=== PATIENT | male | born 1995 | race Hispanic/Latino ===

== ENCOUNTER 2020-02-09 07:41 | Emergency (ER) | payer SELFPAY ==
--- NOTE | 2020-02-09 09:39 | RAD ---
EXAM: 3 views of the right shoulder HISTORY: Shoulder pain COMPARISON: None FINDINGS: There is anterior/inferior dislocation of the glenohumeral joint. No acute fracture is seen . There may be a Hill-Sachs deformity in the proximal humerus. No degenerative changes are present. No soft tissue swelling is seen. The visualized thorax is unremarkable. IMPRESSION: Right anterior/inferior shoulder dislocation
[2020-02-09] MEDS ORDERED: Ketamine 50 MG/ML (10ML VIAL) ONE (09:51)
[2020-02-09] MEDS ORDERED: Ondansetron PF 4 MG/2 ML Vial ONE (09:51)
[2020-02-09] MEDS ORDERED: Fentanyl 100 MCG/2 ML VIAL ONE (10:38)
[2020-02-09] MEDS ORDERED: PROPOFOL 20 ML ONE (10:44)
--- NOTE | 2020-02-10 07:14 | RAD ---
XR Shoulder Rt 3 View STANDARD HISTORY: Right shoulder dislocation FINDINGS: There has been interval reduction of the anterior right shoulder dislocation noted on earlier exam of 9:20 AM from same date. Anatomic alignment has been restored. There is suggestion of a Hill-Sachs deformity.
== END 2020-02-09 12:20 | disposition home or self-care (01) ==
LOC: ERS 07:41
DX: S43.014A Anterior dislocation of right humerus, initial encounter (principal); F17.210 Nicotine dependence, cigarettes, uncomplicated
CPT/HCPCS: 23650; 96374; 96375; 99152; 99153; J2405; J2704; J3010

== ENCOUNTER 2020-04-14 20:25 | Observation (INO) | payer SELFPAY ==
[2020-04-14] MEDS ORDERED: levETIRAcetam in NS 100 ML ONE (20:56)
[2020-04-14 21:04] LABS: #Eosinphils 0.1 thou/uL (0.0-0.7); #Lymphocytes 2.1 thou/uL (1.20-3.40); #Monocytes 0.4 thou/uL (0.11-0.59); %Basophils 0.2 % (0.0-1.0); %Eosinophils 1.3 % (0.0-10.0); %Lymphocytes 24.5 % (21.0-51.0); %Monocytes 4.8 % (0.0-10.0); %Neutrophils 69.2 % (42.0-75.0); Mean Corpuscular HGB CONC 33.9 g/dL (32.0-36.0); Mean Corpuscular Hemoglobin 32.3 pg (27.0-31.0); Mean Corpuscular Volume 95.2 fL (78.0-98.0); Mean Platelet Volume 8.2 fL (7.4-10.4); Platelet Count 190 thou/uL (130-400); RBC Distribution Width 11.5 % (11.5-14.5); Red Blood Cell (RBC) Count 4.64 mill/uL (4.70-6.10); White Blood Cell (WBC) Count 8.6 thou/uL (4.8-10.8)
[2020-04-14 21:24] LABS: ALT (SGPT) 15 U/L (8-55); AST (SGOT) 19 U/L (5-34); Albumin 4.3 g/dL (3.5-5.0); Alkaline Phosphatase 68 U/L (40-110); Anion Gap 15 mmol/L (10-20); BUN (Urea Nitrogen) 13 mg/dL (8.9-20.6); Bilirubin, Total 0.6 mg/dL (0.2-1.2); Calc. Creatinine Clearance 0 mL/min (70-130); Calcium 8.8 mg/dL (7.8-10.44); Carbon Dioxide 24 mmol/L (22-29); Chloride 102 mmol/L (98-107); Globulin 2.9 g/dL (2.4-3.5); Glucose 129 mg/dL (70-105); Potassium 3.9 mmol/L (3.5-5.1); Protein, Total 7.2 g/dL (6.0-8.3); Sodium 137 mmol/L (136-145)
[2020-04-15] MEDS ORDERED: Acetaminophen 325 MG TAB PO PRN (01:27)
[2020-04-15] MEDS ORDERED: Acetaminophen 650 MG Suppository PR PRN (01:27)
[2020-04-15] MEDS ORDERED: Lorazepam 2 MG/ML VIAL SLOW IVP PRN (01:29)
[2020-04-15 03:33] VITALS: BMI 28.0
[2020-04-15 05:35] LABS: #Eosinphils 0.1 thou/uL (0.0-0.7); #Lymphocytes 1.3 thou/uL (1.20-3.40); #Monocytes 0.7 thou/uL (0.11-0.59); #Neutrophils 12.6 thou/uL (1.40-6.50); %Basophils 0.3 % (0.0-1.0); %Eosinophils 0.4 % (0.0-10.0); %Monocytes 4.9 % (0.0-10.0); %Neutrophils 85.5 % (42.0-75.0); Hemoglobin 14.1 g/dL (14.0-18.0); Mean Corpuscular HGB CONC 32.3 g/dL (32.0-36.0); Mean Corpuscular Hemoglobin 30.3 pg (27.0-31.0); Mean Corpuscular Volume 93.9 fL (78.0-98.0); Mean Platelet Volume 8.4 fL (7.4-10.4); Platelet Count 195 thou/uL (130-400); RBC Distribution Width 11.7 % (11.5-14.5); Red Blood Cell (RBC) Count 4.66 mill/uL (4.70-6.10); White Blood Cell (WBC) Count 14.7 thou/uL (4.8-10.8)
[2020-04-15 05:57] LABS: Anion Gap 13 mmol/L (10-20); BUN (Urea Nitrogen) 12 mg/dL (8.9-20.6); Calc. Creatinine Clearance 170 mL/min (70-130); Calcium 8.5 mg/dL (7.8-10.44); Carbon Dioxide 23 mmol/L (22-29); Chloride 104 mmol/L (98-107); Glucose 112 mg/dL (70-105); Potassium 3.6 mmol/L (3.5-5.1); Sodium 136 mmol/L (136-145)
[2020-04-15] MEDS ORDERED: levETIRAcetam 500 MG TAB PO SCH (09:00)
[2020-04-15] MEDS ORDERED: FLU VACC QS2020-21(6MOS UP)/PF 60 MCG/0.5 ML SYRINGE IM ONE (09:00)
[2020-04-15] MEDS ORDERED: Famotidine 20 MG TAB PO SCH (09:00)
[2020-04-15 09:32] LABS: SARS-CoV-2 PCR by NAA Not Detected (NotDetected)
[2020-04-15 12:07] LABS: Amphetamine Not Detected (NotDetected); Barbiturates Screen Not Detected (NotDetected); Benzodiazepine Screen Not Detected (NotDetected); Cocaine Metabolite Screen Not Detected (NotDetected); Medtox Control Line Valid? VALID (VALID); Medtox Reader # READER 4; Methadone Not Detected (NotDetected); Methamphetamine Not Detected (NotDetected); Opiate Screen Not Detected (NotDetected); Oxycodone Screen Not Detected (NotDetected); Phencyclidine (PCP) Not Detected (NotDetected); THC/Cannabinoid Screen Not Detected (NotDetected); Tricyclic Screen Not Detected (NotDetected)
[2020-04-15] MEDS ORDERED: Magnevist 469MG/ML 20 ML VIAL ONE (14:22)
[2020-04-15 16:00] VITALS: BP 105/53; TEMP 98.6
== END 2020-04-15 17:55 | disposition home or self-care (01) ==
LOC: ERS 20:25 → 2SE 04-15 00:24
PROVIDERS: ADMIT Internal Medicine; ATTEND Internal Medicine
DX: G40.409 Other generalized epilepsy and epileptic syndromes, not intractable, without status epilepticus (principal); F17.210 Nicotine dependence, cigarettes, uncomplicated; Z20.822 Contact with and (suspected) exposure to COVID-19
CPT/HCPCS: 36415; 70450; 70553; 80048; 80053; 80306; 84146; 85025; 87635; 90471; 90662; 93005; 95712; 95816; 95819; 95957; 96365; A9579; G0008; G0378; J1953; U0003; U0005

== ENCOUNTER 2020-10-29 04:10 | Emergency (ER) | payer SELFPAY ==
[2020-10-29] MEDS ORDERED: Morphine 10 MG/ML VIAL ONE (04:46)
[2020-10-29] MEDS ORDERED: Lidocaine 1% (PF) 30 ML VIAL ONE (04:48)
== END 2020-10-29 05:50 | disposition home or self-care (01) ==
LOC: ERS 04:10
DX: S43.014A Anterior dislocation of right humerus, initial encounter (principal); F17.210 Nicotine dependence, cigarettes, uncomplicated; X58.XXXA Exposure to other specified factors, initial encounter
CPT/HCPCS: 23650; 96372; J2001; J2270

== ENCOUNTER 2020-12-03 06:58 | Day surgery (SDC) | payer SELFPAY ==
[2020-12-03] MEDS ORDERED: Ketamine 50 MG/ML (10ML VIAL) ONE (08:50)
[2020-12-03] MEDS ORDERED: PROPOFOL 20 ML ONE (08:50)
[2020-12-03 10:04] LABS: #Lymphocytes 1.2 thou/uL (1.20-3.40); #Monocytes 0.6 thou/uL (0.11-0.59); #Neutrophils 17.1 thou/uL (1.40-6.50); %Basophils 0.1 % (0.0-1.0); %Eosinophils 0.1 % (0.0-10.0); %Lymphocytes 6.6 % (21.0-51.0); %Neutrophils 90.3 % (42.0-75.0); Mean Corpuscular HGB CONC 33.4 g/dL (32.0-36.0); Mean Corpuscular Hemoglobin 31.2 pg (27.0-31.0); Mean Corpuscular Volume 93.5 fL (78.0-98.0); Mean Platelet Volume 7.8 fL (7.4-10.4); Platelet Count 221 thou/uL (130-400); Red Blood Cell (RBC) Count 5.14 mill/uL (4.70-6.10); White Blood Cell (WBC) Count 18.9 thou/uL (4.8-10.8)
[2020-12-03] MEDS ORDERED: Fentanyl 100 MCG/2 ML VIAL ONE ×2 (10:14→10:44)
[2020-12-03 10:23] LABS: ALT (SGPT) 16 U/L (8-55); AST (SGOT) 17 U/L (5-34); Albumin 4.2 g/dL (3.5-5.0); Alkaline Phosphatase 86 U/L (40-110); Anion Gap 15 mmol/L (10-20); BUN (Urea Nitrogen) 12 mg/dL (8.9-20.6); Bilirubin, Total 0.4 mg/dL (0.2-1.2); Calc. Creatinine Clearance 0 mL/min (70-130); Calcium 9.4 mg/dL (7.8-10.44); Carbon Dioxide 23 mmol/L (22-29); Chloride 104 mmol/L (98-107); Globulin 2.9 g/dL (2.4-3.5); Glucose 119 mg/dL (70-105); Protein, Total 7.1 g/dL (6.0-8.3); Sodium 138 mmol/L (136-145)
[2020-12-03] MEDS ORDERED: Midazolam HCl 2 mg/2 ml Vial ONE (10:56)
[2020-12-03] MEDS ORDERED: PROPOFOL 200 MG/20 ML VIAL ONE (11:06)
[2020-12-03] MEDS ORDERED: Dexamethasone 20 MG/5 ML VIAL ONE (11:06)
[2020-12-03] MEDS ORDERED: Ondansetron PF 4 MG/2 ML Vial ONE (11:06)
[2020-12-03] MEDS ORDERED: Succinylcholine 200 MG/10 ml SYRINGE FS ONE (11:06)
[2020-12-03] MEDS ORDERED: Lidocaine 1% PF 5 ML VIAL ONE (11:06)
[2020-12-03 11:48] LABS: SARS-CoV-2 NAA Rapid Test Not Detected (NotDetected)
== END 2020-12-03 12:45 | disposition home or self-care (01) ==
LOC: ERS 06:58 → SDC 11:13
PROVIDERS: ATTEND Orthopaedic Surgery
PROC: 0RSJXZZ Reposition Right Shoulder Joint, External Approach (ICD-10-PCS; principal; 2020-12-03)
DX: S43.014A Anterior dislocation of right humerus, initial encounter (principal); S43.034A Inferior dislocation of right humerus, initial encounter; M24.811 Other specific joint derangements of right shoulder, not elsewhere classified; G40.909 Epilepsy, unspecified, not intractable, without status epilepticus; F17.210 Nicotine dependence, cigarettes, uncomplicated; Z20.822 Contact with and (suspected) exposure to COVID-19
CPT/HCPCS: 36415; 80053; 85025; 93005; 94760; J0690; J1100; J2250; J2405; J2704; J3010; U0002

== ENCOUNTER 2021-01-28 02:24 | Emergency (ER) | payer SELFPAY | END 2021-01-28 03:16 | disposition home or self-care (01) | LOC: ERS 02:24 | DX: S43.004A Unspecified dislocation of right shoulder joint, initial encounter (principal); F17.210 Nicotine dependence, cigarettes, uncomplicated; X58.XXXA Exposure to other specified factors, initial encounter | CPT/HCPCS: 23650 ==

== ENCOUNTER 2021-08-28 02:07 | Emergency (ER) | payer SELFPAY | END 2021-08-28 03:10 | disposition home or self-care (01) | LOC: ERS 02:07 | DX: S43.014A Anterior dislocation of right humerus, initial encounter (principal); X58.XXXA Exposure to other specified factors, initial encounter | CPT/HCPCS: 23650 ==

== ENCOUNTER 2021-09-02 02:07 | Emergency (ER) | payer SELFPAY ==
[2021-09-02] MEDS ORDERED: PROPOFOL 20 ML ONE (03:33)
== END 2021-09-02 04:42 | disposition home or self-care (01) ==
LOC: ERS 02:07
DX: S43.004A Unspecified dislocation of right shoulder joint, initial encounter (principal); X50.1XXA Overexertion from prolonged static or awkward postures, initial encounter; Z79.899 Other long term (current) drug therapy
CPT/HCPCS: 23665; J2704

== ENCOUNTER 2023-02-02 09:31 | Emergency (ER) | payer SELFPAY ==
[2023-02-02] MEDS ORDERED: Ketorolac Tromethamine 30 MG/ML VIAL ONE (10:07)
[2023-02-02] MEDS ORDERED: fentaNYL 50 mcg/mL 1 mL Vial ONE ×2 (11:02→12:18)
[2023-02-02] MEDS ORDERED: Ondansetron PF 4 MG/2 ML Vial ONE (11:02)
[2023-02-02] MEDS ORDERED: Ketamine In 0.9 % NaCl 50 MG/5 ML SYRINGE ONE ×2 (11:03→13:01)
[2023-02-02] MEDS ORDERED: LORazepam 2 MG/ML SYR.(CARPUJECT) ONE (11:48)
[2023-02-02] MEDS ORDERED: levETIRAcetam 500 MG/5 ML VIAL ONE (11:51)
[2023-02-02] MEDS ORDERED: PROPOFOL 20 ML ONE (13:38)
== END 2023-02-02 15:10 | disposition home or self-care (01) ==
LOC: ERS 09:31
DX: S43.004D Unspecified dislocation of right shoulder joint, subsequent encounter (principal); X58.XXXD Exposure to other specified factors, subsequent encounter
CPT/HCPCS: 23650; 96361; 96372; 96374; 96375; 96376; 99155; 99157; J1885; J1953; J2060; J2405; J2704; J3010; J3490

== ENCOUNTER 2023-02-07 01:48 | Emergency (ER) | payer SELFPAY ==
[2023-02-07] MEDS ORDERED: Lidocaine 1% PF 5 ML VIAL ONE (02:06)
== END 2023-02-07 02:37 | disposition home or self-care (01) ==
LOC: ERS 01:48
DX: S43.004A Unspecified dislocation of right shoulder joint, initial encounter (principal); X50.1XXA Overexertion from prolonged static or awkward postures, initial encounter
CPT/HCPCS: 23650

== ENCOUNTER 2025-01-04 13:01 | Emergency (ER) | payer SELFPAY ==
[~2025-01-04 13:01] MED LIST: Iopamidol-370 76% 500 ML MDV (1 ML CHARGE) ONE
[2025-01-04] MEDS ORDERED: Ketorolac Tromethamine 30 MG (1 mL) VIAL ONE (14:26)
== END 2025-01-04 14:33 | disposition home or self-care (01) ==
LOC: ERS 13:01
DX: S80.12XA Contusion of left lower leg, initial encounter (principal); V49.40XA Driver injured in collision with unspecified motor vehicles in traffic accident, initial encounter
CPT/HCPCS: 70450; 71045; 71260; 72125; 72170; 74177; 75635; 96374; 96375; G0390; J1885; J2270; Q9967